=== PATIENT | male | born 1965 | race Caucasian/White ===

== ENCOUNTER → 2020-08-14 | Outpatient (CLI) | payer BC ==
[~2020-08-14] MED LIST: DAILY VALUE1 EACH PO; MOTRIN800 MG PO; NKHM
== END | disposition home or self-care (01) ==
LOC: COVID19 14:48
PROVIDERS: ATTEND Internal Medicine
DX: U07.1 COVID-19 (principal)

== ENCOUNTER → 2020-09-25 | Outpatient (CLI) | payer BC | END | disposition home or self-care (01) | LOC: COVID19 08:04 | PROVIDERS: ATTEND Surgery | DX: Z01.812 Encounter for preprocedural laboratory examination (principal); Z20.822 Contact with and (suspected) exposure to COVID-19 ==

== ENCOUNTER → 2020-09-29 | Day surgery (SDC) | payer BC ==
[~2020-09-29] VITALS: Ht 165.1 cm; Wt 102.5 kg
[2020-09-29 08:53] VITALS: BP 192/116
[2020-09-29 10:43] VITALS: BP 168/111
[2020-09-29 10:58] VITALS: BP 155/110
[2020-09-29 11:13] VITALS: BP 179/108
== END | disposition home or self-care (01) ==
LOC: SDC 09-26 09:30
PROVIDERS: ATTEND Surgery
DX: Z12.11 Encounter for screening for malignant neoplasm of colon (principal); D12.5 Benign neoplasm of sigmoid colon; K57.30 Diverticulosis of large intestine without perforation or abscess without bleeding; Z98.890 Other specified postprocedural states; Z79.899 Other long term (current) drug therapy